=== PATIENT | male | born 1945 | race Two or more races ===

== ENCOUNTER 2017-09-28 23:32 | Observation (INO) | payer MEDICARE, SELFPAY ==
[~2017-09-28] VITALS: Ht 172.7 cm; Wt 67.4 kg
[2017-09-29 01:10] LABS: BASOPHILS # (AUTO) 0.03 x10^3/uL (0-0.1); BASOPHILS % (AUTO) 1 % (0-1); EOSINOPHILS % (AUTO) 6 % (1-7); LYMPHOCYTES # (AUTO) 1.71 x10^3/uL (1-3.4); LYMPHOCYTES % (AUTO) 25 % (22-44); MD NO; MEAN CORPUSCULAR HEMOGLOBIN 32.5 pg (27.5-34.5); MEAN CORPUSCULAR HGB CONC 34.4 g/dL (33.2-36.2); MEAN CORPUSCULAR VOLUME 94.6 fL (81-97); MEAN PLATELET VOLUME 6.4 fL (7.4-10.4); MONOCYTES # (AUTO) 0.54 x10^3/uL (0.2-0.8); MONOCYTES % (AUTO) 8 % (2-9); NEUTROPHILS % (AUTO) 61 % (42-75); PLATELET COUNT 270 x10^3/uL (130-400); RED BLOOD COUNT 4.84 x10^6/uL (4.38-5.82)
[2017-09-29 01:20] LABS: ALBUMIN 3.9 g/dL (3.4-5.0); ANION GAP 5 mmol/L (5-15); CALCIUM 9.2 mg/dL (8.5-10.1); CHLORIDE 105 mmol/L (98-107); CREATININE 1.21 mg/dL (0.7-1.3)
[2017-09-29 01:25] LABS: TROPONIN I 0.128 ng/mL (0.000-0.045)
[2017-09-29] MEDS ORDERED: ONDANSETRON 2MG/ML, 2ML IVPush PRN ×2 (02:00→08:30)
[2017-09-29] MEDS ORDERED: ASPIRIN 81 MG TABLET CHEW PO ONE (02:00)
[2017-09-29 03:17] VITALS: BP 169/80
[2017-09-29] MEDS ORDERED: ASPIRIN 81 MG TABLET EC ONE ×2 (07:08→08:58)
[2017-09-29] MEDS ORDERED: NITROGLYCERIN 0.4 MG BOTTLE (25 TABS) SL PRN (08:30)
[2017-09-29] MEDS ORDERED: LABETALOL 5MG/ML, 20ML IVPush PRN (08:30)
[2017-09-29] MEDS ORDERED: ACETAMINOPHEN 325 MG TABLET PO PRN (08:30)
[2017-09-29] MEDS ORDERED: POLYETHYLENE GLYCOL 17 GM PACKET PO PRN (08:30)
[2017-09-29] MEDS ORDERED: BISACODYL 10 MG SUPP PR PRN (08:30)
[2017-09-29] MEDS ORDERED: morphine SULFATE 10 MG/ML, 1ML IVPush PRN (08:30)
[2017-09-29 08:49] LABS: TROPONIN I 0.128 ng/mL (0.000-0.045)
[2017-09-29] MEDS ORDERED: DOCUSATE 100 MG CAPSULE PO PRN (09:00)
[2017-09-29 09:03] VITALS: BP 148/78
[2017-09-29] MEDS ORDERED: REGADENOSON 0.4 MG/5 ML SYRINGE ONE (11:38)
[2017-09-29] MEDS ORDERED: PNEUMOCOCCAL 23 VACCINE IM-VACC ONE (13:30)
[2017-09-29] MEDS ORDERED: FLU VACC QS2017-18 (36MOS+) UP/PF 0.5 ML IM-VACC ONE (13:30)
[2017-09-29 14:31] VITALS: BP 141/71
[2017-09-30] MEDS ORDERED: ASPIRIN 325 MG TABLET EC PO SCH (06:00)
== END 2017-09-29 14:18 | disposition home or self-care (01) ==
LOC: ED 09-29 01:26 → EDIP 09-29 01:58 → INTOOBSV 09-29 01:58 → 5SO 09-29 02:58 → DCLOUNGE 09-29 14:14
PROVIDERS: ADMIT Surgery; ATTEND Surgery
DX: R06.02 Shortness of breath (principal); R79.89 Other specified abnormal findings of blood chemistry; R73.9 Hyperglycemia, unspecified; Z87.891 Personal history of nicotine dependence; Z83.3 Family history of diabetes mellitus; Z79.82 Long term (current) use of aspirin; Z23 Encounter for immunization
CPT/HCPCS: 36415; 71020; 78452; 80048; 82040; 83880; 84484; 85025; 85379; 90471; 90472; 90686; 90732; 93005; 93017; 93306; 99285; A9502; C9898; G0378; J2785